=== PATIENT | male | born 1970 | race Caucasian/White ===

== ENCOUNTER 2024-06-14 22:20 | Emergency (ER) | payer OTHER, SELFPAY ==
[2024-06-14 22:21] VITALS: BMI 38.5
[2024-06-14 22:22] VITALS: BP 140/82
[2024-06-14] MEDS: MOTRIN 400 MG PO (22:28)
[2024-06-14 22:37] LABS: % Basophils 0.3 % (0-2); % Eosinophils 0.9 % (0-6); % Immature Granulocytes 0.3 % (0-0.5); % Lymphocytes 13.8 % (20.5-51.1); % Monocytes 8.4 % (1.7-9.3); % Neutrophils 76.3 % (42.2-75.2); Absolute Eosinophils 0.1 10^3/uL (0-0.7); Absolute Monocytes 0.6 10^3/uL (0.1-0.6); Absolute Neutrophils 5.3 10^3/uL (1.4-6.5); Hemoglobin 12.8 g/dL (13.0-18.0); Mean Corp Hgb Conc. 33.7 g/dL (33.0-37.0); Mean Corpuscular Hgb 29.6 pg (27.0-31.0); Mean Corpuscular Volume 87.8 fL (80.0-94.0); Mean Platelet Volume 8.4 fL (7.4-10.4); Nucleated Red Blood Cells % 0 % (-); Platelet Count 238 10^3/uL (130-400); Red Blood Cell Count 4.33 10^6/uL (4.70-6.10); Red Cell Dist. Width 13.4 % (11.5-14.5); White Blood Cell Count 6.9 10^3/uL (4.8-10.8)
[2024-06-14 22:53] LABS: ALT (SGPT) 37 U/L (0-50); AST (SGOT) 28 U/L (17-59); Albumin 4.3 g/dl (3.5-5.0); Alkaline Phosphatase 82 U/L (38-126); Blood Urea Nitrogen 16 mg/dl (9-20); Calcium 8.4 mg/dl (8.4-10.2); Carbon Dioxide 28 mmol/L (22-30); Chloride 99 mmol/L (98-107); Glucose 108 mg/dl (70-99); Potassium 4.1 mmol/L (3.5-5.1); Sodium 137 mmol/L (135-145); Total Bilirubin 0.4 mg/dl (0.2-1.3); Total Protein 6.7 g/dl (6.3-8.2); eGFR > 60.00
[2024-06-14 22:56] LABS: COVID-19 Antigen Positive (Negative)
[2024-06-15 01:19] VITALS: BP 134/64
[2024-06-15 01:25] VITALS: BP 134/64
[2024-06-15 02:00] VITALS: BP 132/67
--- NOTE | 2024-06-15 02:34 | ED.GENMED ---
History of Present Illness
General
Chief Complaint: Cough
Source: patient
Exam Limitations: none
Time Seen by Provider: 06/15/24 02:25
Nursing documentation reviewed up to this point in time: agreed with
History of Present Illness
History of Present Illness:
Patient with history of asthma, presents ED secondary to 1 day history of persistent cough with shortness of breath. Denies fever or chills. Denies nausea, vomiting, or diarrhea. Denies headache. Denies sore throat. Denies loss of appetite.
Deny recent travel or surgery. Denies recent sick contact.
Review of Systems
Review of Systems
Allergies reviewed?: Yes
All Other Systems: ROS reviewed and negative except as documented in HPI and ROS
Constitutional: Reports no symptoms; Denies chills
EENT: Reports no symptoms
Respiratory: Reports cough and trouble breathing
Cardiac: Reports no symptoms
ABD/GI: Reports no symptoms; Denies vomiting or diarrhea
Musculoskeletal: Reports no symptoms
Skin: Reports no symptoms
Neurological: Reports no symptoms; Denies headache
Phy Exam
Physical Exam
Physical Exam:
Physical Exam
General: mild distress, not acutely ill. afebrile
Head: nc/at. eomi
Neck: supple. no meningeal signs.
Heart: s1/s2 regular rate and rhythm, no murmur. equal radial pulses.
Lungs: no acute respiratory distress. clear bilaterally
Abdomen: normal bowel sounds. not tender.
Neuro: alert and oriented x 3. no focal neurological deficits
Skin: no rash
Psychiatric: well kept. interactive and cooperative
Extremities: no edema. no calf tenderness.
Sepsis
Sepsis Screening
Sepsis Assessment: Sepsis
Sepsis Screen
Sepsis Screen: Sepsis
Date: 06/15/24
Time: 06:19
Course
Orders/Labs/Results
Orders:
Orders
06/14/24 22:25
Ibuprofen [Motrin] 400 mg .ROUTE .STK-MED ONE
06/14/24 22:27
Chest [CR Chest - 2 Views ] Urgent
Comment:
Reason For Exam: cough
06/14/24 22:28
Ibuprofen [Motrin] 400 mg PO NOW STA
06/14/24 22:30
CBC/With Diff [Complete Blood Count/With Diff] Urgent
CMP [Comprehensive Metabolic Panel] Urgent
COVID-19 Antigen Urgent
Source: Nasal Swab
INF RAPID [Influenza A+B Rapid Molecular] Urgent
HERMANN Source: Nasal Swab
Specimen Description:
Abnormal Lab Results
06/14/24
22:30
RBC 4.33 L 10^6/uL
(4.70-6.10)
Hgb 12.8 L g/dL
(13.0-18.0)
Hct 38.0 L %
(39.0-52.0)
Absolute Lymphs (auto) 1.0 L 10^3/uL
(1.2-3.4)
Neutrophils % 76.3 H %
(42.2-75.2)
Lymphocytes % 13.8 L %
(20.5-51.1)
Glucose 108 H mg/dl
(70-99)
SARS-CoV-2 Antigen Positive A
(Negative)
06/14/24 22:30
06/14/24 22:30
Vital Signs
Initial and Last Documented VS:
Initial Vital Signs
Temp Pulse Resp BP Pulse Ox
101.5 F H 113 20 140/82 97
06/14/24 22:22 06/14/24 22:22 06/14/24 22:22 06/14/24 22:22 06/14/24 22:22
Last Documented Vital Signs
Temp Pulse Resp BP Pulse Ox
98.6 F 64 20 132/67 100
06/15/24 01:25 06/15/24 01:25 06/15/24 01:25 06/15/24 02:00 06/15/24 02:30
MDM/Problems Addressed
MDM/Problems Addressed:
History and consistent with symptoms secondary to COVID-19. Patient otherwise is hemodynamically stable and nontoxic-appearing. Fever improved with administration of Tylenol. Patient without any wheezing on exam. In light of patient's underlying
asthma history, patient is certainly at risk for worsening symptoms. As such, after discussion, decision made to start patient on Paxlovid, which patient has had taken in the past with previous COVID-19 infection, without significant side effects
*Critical Care Note
Total Time (30-74mins, 75-104mins- exclusive of procedures): Not Applicable
ED Attending Note
-
Portions of this chart may have been created with voice recognition software.� Occasional wrong word or��sound alike� substitutions may have occurred due to the inherent limitations of voice recognition software.
Discharge Plan
Departure
Patient Disposition: Home (Routine Discharge)
Date of Disposition: 06/15/24
Time of Disposition: 02:37
Patient with high blood pressure during this ER visit?: Yes
Condition: Fair
Covid-19: Confirmed COVID-19
Discharge Problem:
COVID-19
Instructions: COVID-19 in adults - Discharge instructions
Prescriptions:
New
Paxlovid 300 mg (150 mg x 2)-100 mg tablets,dose pack
See Rx Instructions .ROUTE .COMPLEX Qty: 30 0RF
Rx Instructions:
take TWO 150 mg tablets of nirmatrelvir with ONE 100 mg tablet of ritonavir twice daily for 5 days
benzonatate 100 mg capsule
100 mg PO TID PRN (Reason: Cough) Qty: 20 0RF
Referrals:
Candelaria Ramirez, [Family Provider] -
Stand Alone Forms: Return to Work
Activity Restrictions/Additional Instructions:
As discussed, please follow-up with your primary care return for reevaluation. Please consider return to ED with worsening symptoms. Your prescriptions have been sent electronically to [id number] pharmacy in [place].
Interventions
Interventions:
*Risk Screen - Suicide Last Done: 06/14/24 22:22
*General Assessment Last Done: 06/14/24 22:22
*Neglect/Abuse Screening Last Done: 06/14/24 22:22
ED- Fall Risk Assessment Last Done: 06/15/24 01:26
*ED COVID-19 Vaccine History Last Done: 06/14/24 22:22
*Nursing Disposition Last Done: 06/15/24 02:40
ED- Pulmonary Assessment Last Done: 06/15/24 01:26
Discharge Date and Time
Discharge Date/Time: 06/15/24 02:43
Print Language: GREEK
== END 2024-06-15 02:43 | disposition home or self-care (01) ==
LOC: EMR 22:20
PROVIDERS: EMERGENCY PHYSICIAN Emergency Medicine; FAMILY PHYSICIAN Family Medicine
DX: U07.1 COVID-19 (principal); J45.909 Unspecified asthma, uncomplicated
CPT/HCPCS: 99284; 71046; 80053; 85025; 87502; 87811